=== PATIENT | male | born 1930 | race Caucasian/White ===

== ENCOUNTER 2016-07-30 15:59 | Observation (INO) | payer MEDICARE, OTHER, SELFPAY ==
[~2016-07-30 15:59] MED LIST: LOPRESSOR DPS100 MG PO; PRAVACHOL40 MG PO; SURFAK DPS240 MG PO; TRANXENE DPS PO; ZESTRIL DPS20 MG PO
[2016-08-01] MEDS ORDERED: CORDARONE DPS200 MG PO (13:28)
[2016-08-01] MEDS ORDERED: DUONEB DPS3 ML IH (13:28)
[2016-08-01] MEDS ORDERED: ASA CHILDREN'S81 MG PO (13:28)
[2016-08-01] MEDS ORDERED: ROCALTROL DP0.25 MCG PO (13:29)
[2016-08-01] MEDS ORDERED: COLACE-DPS100 MG PO (13:30)
[2016-08-01] MEDS ORDERED: KEFLEX-DPS500 MG PO (13:30)
[2016-08-01] MEDS ORDERED: ARICEPT DPS5 MG PO (13:30)
[2016-08-01] MEDS ORDERED: PERCOCET 5 DPS1 TAB PO (13:31)
[2016-08-01] MEDS ORDERED: LASIX DPS20 MG PO (13:31)
[2016-08-01] MEDS ORDERED: MAALOX DPS30 ML PO (13:32)
[2016-08-01] MEDS ORDERED: MELATONIN3 MG PO (13:33)
[2016-08-01] MEDS ORDERED: FEOSOL-DPS325 MG PO (13:33)
[2016-08-01] MEDS ORDERED: LANOXIN DPS0.125 MG PO (13:33)
[2016-08-01] MEDS ORDERED: REGLAN-DPS10 MG PO (13:34)
[2016-08-01] MEDS ORDERED: LOPRESSOR DPS50 MG PO (13:34)
[2016-08-01] MEDS ORDERED: MILK OF MA400 MG/5 M PO (13:35)
[2016-08-01] MEDS ORDERED: MIRALAX PACKET17 GM PO (13:35)
[2016-08-01] MEDS ORDERED: THERAPEUTIC MUL1 TAB PO (13:35)
[2016-08-01] MEDS ORDERED: MUCINEX600 MG PO (13:35)
[2016-08-01] MEDS ORDERED: PROTONIX40 MG PO (13:36)
[2016-08-01] MEDS ORDERED: PRAVACHOL40 MG PO (13:36)
[2016-08-01] MEDS ORDERED: NITROSTAT0.4 MG SL (13:36)
[2016-08-01] MEDS ORDERED: FLOMAX DPS0.4 MG PO (13:36)
[2016-08-01] MEDS ORDERED: COUMADIN DPS2 MG PO (13:37)
[2016-08-01] MEDS ORDERED: DESYREL-DPS50 MG PO (13:37)
[2016-08-01] MEDS ORDERED: TYLENOL325 MG PO (13:37)
== END 2016-07-31 10:25 | disposition home or self-care (01) ==
DX: R07.89 Other chest pain (principal); I25.10 Atherosclerotic heart disease of native coronary artery without angina pectoris; J44.9 Chronic obstructive pulmonary disease, unspecified; E11.22 Type 2 diabetes mellitus with diabetic chronic kidney disease; N18.3 Chronic kidney disease, stage 3 (moderate); I48.91 Unspecified atrial fibrillation; E87.5 Hyperkalemia; F03.90 Unspecified dementia, unspecified severity, without behavioral disturbance, psychotic disturbance, mood disturbance, and anxiety; Z90.49 Acquired absence of other specified parts of digestive tract; Z87.891 Personal history of nicotine dependence; Z95.1 Presence of aortocoronary bypass graft; Z79.899 Other long term (current) drug therapy; Z98.890 Other specified postprocedural states

== ENCOUNTER 2016-09-07 07:36 | Day surgery (SDC) | payer MEDICARE, OTHER ==
[~2016-09-07] VITALS: Ht 172.7 cm; Wt 70.0 kg
[~2016-09-07 07:36] MED LIST changes: +ARICEPT DPS5 MG PO; +ASA CHILDREN'S81 MG PO; +COLACE-DPS100 MG PO; +CORDARONE DPS200 MG PO; +COUMADIN DPS2 MG PO; +DESYREL-DPS50 MG PO; +DUONEB DPS3 ML IH; +FEOSOL-DPS325 MG PO; +FLOMAX DPS0.4 MG PO; +KEFLEX-DPS500 MG PO; +LANOXIN DPS0.125 MG PO; +LASIX DPS20 MG PO; +LOPRESSOR DPS50 MG PO; +MAALOX DPS30 ML PO; +MELATONIN3 MG PO; +MILK OF MA400 MG/5 M PO; +MIRALAX PACKET17 GM PO; +MUCINEX600 MG PO; +NITROSTAT0.4 MG SL; +PERCOCET 5 DPS1 TAB PO; +PROTONIX40 MG PO; +REGLAN-DPS10 MG PO; +ROCALTROL DP0.25 MCG PO; +THERAPEUTIC MUL1 TAB PO; +TYLENOL325 MG PO
== END 2016-09-07 13:05 | disposition home or self-care (01) ==
LOC: SSS 07:36
PROC: B02B1ZZ Computerized Tomography (CT Scan) of Spinal Cord using Low Osmolar Contrast (ICD-10-PCS; principal; 2016-09-07)
DX: M51.36 Other intervertebral disc degeneration, lumbar region (principal); M48.06 Spinal stenosis, lumbar region

== ENCOUNTER 2016-10-02 10:23 | Emergency (ER) | payer MEDICARE, OTHER ==
--- NOTE | 2016-10-10 14:34 | ER ---
ADMIT: 10/02/2016 RM/LOC: ER [facility] MR#: [id number] [place], [place] [address] MATTHEW LEE [address] [place] [address] Emergency Room Report SEX: M AGE: 85 : 1930 DATE: 10/02/2016 ADDENDUM: SUBJECTIVE: This patient comes to the ER because he has had a headache on and off for the last week and has also had abdominal pain from his acid reflux. Currently, he has no headache and no abdominal pain, but his family was concerned that this has been going on for the last week. On physical exam, he is alert and oriented. He answers questions and speaks appropriately. I am unable to elicit any abdominal pain at this time. CAT scan of his head was normal. CBC and CMP were essentially normal. DIAGNOSES: 1. Headache. 2. Acid reflux. DISCUSSION: The family is very concerned about all the type of medication he is on and they are worried that maybe that is causing his headache. I encouraged them to follow up with Dr. Snowden this week. Please see my T sheet. FINA Peters / Poli Kidd MD / mary JOB #: [id number] CC: Poli Kidd MD, Attending Physician Teresita Snowden MD, Family Physician
== END 2016-10-02 13:30 | disposition home or self-care (01) ==
LOC: ER 10:23
DX: R51 Headache (principal); K21.9 Gastro-esophageal reflux disease without esophagitis; E11.9 Type 2 diabetes mellitus without complications; J44.9 Chronic obstructive pulmonary disease, unspecified; Z79.01 Long term (current) use of anticoagulants; Z79.899 Other long term (current) drug therapy; Z79.82 Long term (current) use of aspirin

== ENCOUNTER 2016-10-11 08:40 | Day surgery (SDC) | payer MEDICARE, OTHER, SELFPAY ==
[~2016-10-11] VITALS: Ht 172.7 cm; Wt 67.1 kg
--- NOTE | 2016-10-26 16:19 | OR ---
ADMIT: 10/11/2016 RM/LOC: [facility] MR#: [id number] [address] [id number] MATTHEW LEE Jenni [address] [place] [address] Operative/Delivery Room Report SEX: M AGE: 85 : 1930 SURGERY DATE: 10/11/2016 SURGEON: Devon Collazo MD PREOPERATIVE DIAGNOSIS: Dysphagia. POSTOPERATIVE DIAGNOSIS: No obvious mass, ulcer or lesion. Some mild narrowing of the distal esophagus, may just be functional. No ulcers or other lesions seen, some mild appearing gastritis. PROCEDURES: EGD with balloon dilatation up to 20 mm. ANESTHESIA: MAC anesthesia. ESTIMATED BLOOD LOSS: Less than 5. INDICATION FOR PROCEDURE: Please see H and P. After the risks, benefits, possible complications, and the alternatives had been explained, and informed consent had been obtained, the patient was taken back to the procedure room, underwent sedation. The flexible EGD scope was introduced, slowly maneuvered down the esophagus. In the distal esophagus, there was no actual stricturing or lesion there, but definitely feels a little tight as you are trying to get your scope through there. Maneuvered through the stomach down into the second portion of the duodenum seen in the first picture. The duodenum and duodenal bulb appeared okay. The gastric antrum and body showed some mild gastritis but no ulcers or other lesions noted. Retroflexion of the scope does not show a significant hiatal hernia. Because of his dysphagia, I placed a balloon dilator across the distal esophagus and then in the distal third of the esophagus, 2 different times in 2 different places, I blew it up from 18 to 19 to 20 mm, left in place for about 45 seconds. Then it was removed. I did not see any significant complicating features. The remainder of the upper esophagus otherwise looked okay without masses or lesions, as the scope was removed and the procedure terminated. Tolerated it well, was taken to recovery room in stable and satisfactory condition. Devon Collazo MD/ mary JOB #: [id number] CC: Devon Collazo, Attending Physician Teresita Snowden, Family Physician
== END 2016-10-11 13:25 | disposition home or self-care (01) ==
LOC: SSS 08:40
PROC: 0D738ZZ Dilation of Lower Esophagus, Via Natural or Artificial Opening Endoscopic (ICD-10-PCS; principal; 2016-10-11)
DX: K22.2 Esophageal obstruction (principal); K29.70 Gastritis, unspecified, without bleeding; E11.22 Type 2 diabetes mellitus with diabetic chronic kidney disease; I12.9 Hypertensive chronic kidney disease with stage 1 through stage 4 chronic kidney disease, or unspecified chronic kidney disease; N18.9 Chronic kidney disease, unspecified; K59.00 Constipation, unspecified; K21.0 Gastro-esophageal reflux disease with esophagitis; Z95.1 Presence of aortocoronary bypass graft; Z87.891 Personal history of nicotine dependence; Z88.6 Allergy status to analgesic agent; Z79.01 Long term (current) use of anticoagulants; Z79.52 Long term (current) use of systemic steroids; Z79.899 Other long term (current) drug therapy; Z79.891 Long term (current) use of opiate analgesic